=== PATIENT | female | born 1985 | race Two or more races ===

== ENCOUNTER 2017-07-06 10:26 | Emergency (ER) | payer MEDICAID ==
[~2017-07-06] VITALS: Ht 160 cm; Wt 57.1 kg
[2017-07-06] MEDS ORDERED: SODIUM CHLORIDE 0.9% 1,000 ML IV ONE (10:37)
[2017-07-06] MEDS ORDERED: MORPHINE SULFATE 4 MG/ML, 1ML IVPush PRN (11:00)
[2017-07-06] MEDS ORDERED: SODIUM CHLORIDE 0.9% 1,000ML IVBOLUS ONE (11:00)
[2017-07-06] MEDS ORDERED: ONDANSETRON 2MG/ML, 2ML IVPush ONE (11:00)
[2017-07-06 11:19] LABS: PATH.CAST-FLAG NOT PRESENT; SPERM-FLAG NOT PRESENT; SRC-FLAG NOT PRESENT; XTAL-FLAG NOT PRESENT; YLC-FLAG NOT PRESENT
[2017-07-06 11:24] LABS: HEMATOCRIT 41.2 % (34.6-47.8); HEMOGLOBIN 13.3 g/dL (11.7-16.4); WHITE BLOOD COUNT 10.4 x10^3/uL (3.4-10)
[2017-07-06 11:36] LABS: ASPARTATE AMINO TRANSFERASE 12 U/L (15-37); BLOOD UREA NITROGEN 8 mg/dL (7-18)
[2017-07-06] MEDS ORDERED: CEFTRIAXONE 1,000 MG IM ONE (12:30)
[2017-07-06] MEDS ORDERED: CEFTRIAXONE 1,000 MG ONE (12:43)
[2017-07-06] MEDS ORDERED: LIDOCAINE 1%, 20ML ONE (12:43)
[2017-07-06] MEDS ORDERED: ACETAMINOPHEN 325 MG TABLET PO ONE (13:30)
[2017-07-06 13:34] VITALS: BP 127/78
== END 2017-07-06 13:35 | disposition home or self-care (01) ==
LOC: ED 12:41
DX: R10.9 Unspecified abdominal pain (principal); R11.0 Nausea
CPT/HCPCS: 36415; 76830; 80053; 81001; 83690; 84703; 85025; 87077; 87086; 96372; 99285; J0696; 87186